=== PATIENT | female | born 1960 | race Caucasian/White ===

== ENCOUNTER 2017-08-05 10:04 | Emergency (ER) | payer OTHER ==
[~2017-08-05] VITALS: Ht 152.4 cm; Wt 73.0 kg
[2017-08-05 10:16] VITALS: BP 165/85; PULSE 92; RESP 16; TEMP 97.4; O2SAT 94
[2017-08-05] MEDS ORDERED: ATOR10TA15 PO (10:24)
[2017-08-05] MEDS ORDERED: LISI2.5T3 PO (10:24)
[2017-08-05] MEDS ORDERED: METF500T PO (10:24)
[2017-08-05] MEDS ORDERED: PRIM50TA5 PO (10:24)
[2017-08-05] MEDS ORDERED: LEVO25TA4 PO (10:24)
--- NOTE | 2017-08-05 11:17 | PD ---
HPI . Right arm pain Chief Complaint: Pain: Acute or Chronic Time Seen by Provider: 11:06 Travel History International Travel<30 days: No Contact w/Intl Traveler<30days: No Traveled to known affect area: No History of Present Illness HPI This patient presents with right upper extremity pain which has been an ongoing problem for at least a month. She states that it is continuous and worsening. It is a sharp pain which she rates 10/10. She states that she has been seen at an urgent care facility and has been given a steroid shot which gave her one day relief. She states that she contacted her insurance company and her insurance company instructed her to come to the emergency department for a cervical steroid injection. She states that she cannot get in to see her primary care provider for 2 months for a referral to pain management or interventional radiology or neurosurgery. Allergies-Medications (Allergen,Severity, Reaction): Coded Allergies: No Known Allergies (Unverified , 08/05/17) Reported Meds & Prescriptions Reported Meds & Active Scripts Active Reported Metformin (Metformin HCl) 500 Mg Tab 500 Mg PO DAILY With a meal Primidone 50 Mg Tab 50 Mg PO BID Lisinopril 2.5 Mg Tab 2.5 Mg PO DAILY Levothyroxine (Levothyroxine Sodium) 25 Mcg Tab 25 Mcg PO DAILY Atorvastatin (Atorvastatin Calcium) 10 Mg Tab 10 Mg PO HS Review of Systems Except as stated in HPI: all other systems reviewed are Neg Physical Exam Narrative GENERAL: The patient is holding her right upper extremity with her left hand. SKIN: Warm and dry. HEAD: Normocephalic/atraumatic. EYES: Pupils are equal. Extraocular movements are intact. NECK: Full range of motion. RESPIRATORY: Nonlabored respirations. MUSCULOSKELETAL: Right upper extremity is exquisitely tender to light touch. There is no deformity. NEUROLOGICAL: Nonfocal. PSYCHIATRIC: Appropriate mood and affect. Data Data Last Documented VS Vital Signs Date Time Temp Pulse Resp B/P (MAP) Pulse Ox O2 Delivery O2 Flow Rate FiO2 08/05/17 10:16 97.4 92 16 165/85 (111) 94 MDM Medical Screen Exam Complete: Yes Emergency Medical Condition: No Narrative Course A medical screening exam was performed: At the time of evaluation the presenting medical condition was determined not to be of an emergent nature. The patient was given the option of receiving additional care, but declined. Patient was given options for additional community resources from which to obtain care. The Patient Has Been advised to seek medical attention for their presenting complaint. The patient has been advised to return to the ER at any time if an emergent condition develops. This patient came here with the only goal of obtaining a steroid injection in her cervical spine. I have explained to the patient that we don't do those here in the emergency department. She does not wish to pursue further evaluation and treatment in the emergency department. She does not have an emergency medical condition. Primary Impression: Encounter for medical screening examination Additional Instructions: You can be seen today or tomorrow in the [place] office. Condition: Stable Akanksha Archibald MD Aug 05, 2017 11:17
== END 2017-08-05 11:26 | disposition left against medical advice (07) ==
LOC: PHEFT 10:04
DX: M79.601 Pain in right arm (principal)
CPT/HCPCS: 99281